=== PATIENT | male | born 1985 | race Native Hawaiian/Other Pacific Islander ===

== ENCOUNTER 2023-07-09 09:02 | Emergency (ER) | payer MEDICAID ==
[~2023-07-09] VITALS: Ht 165.1 cm; Wt 90.9 kg
[~2023-07-09 09:02] MED LIST: LANTUS SOLOS100 U/ML SQ
[2023-07-09 09:20] VITALS: TEMP 97.5
[2023-07-09 11:30] VITALS: BP 134/84; PULSE 102
== END 2023-07-09 11:40 | disposition home or self-care (01) ==
LOC: COL.ER 09:02
DX: J06.9 Acute upper respiratory infection, unspecified (principal)